=== PATIENT | female | born 1965 | race Caucasian/White ===

== ENCOUNTER 2016-09-15 23:28 | Emergency (ER) | payer BC ==
[~2016-09-15] VITALS: Ht 170.2 cm; Wt 80.3 kg
--- NOTE | ~2016-09-15 | CR72 ---
[facility] A Service of [facility] RADIOLOGY TEXT RESULTS PATIENT: WAI LEONARD LOCATION: [facility] : 69 UNIT #: [id number] AGE: [address]: EMIR ELKINS APRN SEX: F ORDER DR: [id number] [facility] [address] [place], [place] [address] [id number] E MR#: [id number] Acc #: [id number] NAME: WAI LEONARD. : 1965 SEX: F STUDY DATE/TIME: 09/16/2016 1:24 UNIT: [facility] ROOM: STUDY DESCRIPTION: CR Chest Single View Portable Attending Physician: Emir Elkins Aprn Ordering Physician: Emir Elkins Aprn Primary Care Physician: Dominick Lombardi M.D. MEDICAL IMAGING REPORT This report is preliminary unless electronic signature is present EXAM AP portable chest. DATE 09/16/2016 HISTORY 51-year-old female with chest pain and shortness of breath for 1 week, worse since yesterday. COMPARISON PA and lateral chest radiograph, 09/12/2011. FINDINGS A single AP portable view of the chest shows both lungs to be clear. The heart is normal in size. The mediastinal contour is normal. No significant bone abnormalities are seen. IMPRESSION Normal portable chest. Dictated by... Ирина Huynh M.D. THIS IS AN ELECTRONICALLY VERIFIED REPORT Ирина Huynh M.D. at 09/16/2016 9:51 PM [facility]/meghna TD: 09/16/2016 10:01 JOB #: [id number] [facility] A Service [facility] RADIOLOGY TEXT RESULTS PATIENT: WAI LEONARD LOCATION: [facility] : [birth year] UNIT #: [id number] AGE: [address]: EMIR ELKINS APRN SEX: F ORDER DR: MEDICAL IMAGING REPORT Page 1 of 1 COPY
--- NOTE | ~2016-09-15 | EKG ---
PATIENT: WAI LEONARD UNIT #: [id number] Ventricular Rate: 67 BPM Atrial Rate: 67 BPM P-R Interval: 170 ms QRS Duration: 94 ms Q-T Interval: 412 ms QTC Calculation(Bezet): 435 ms P Arg[place]: 73 degrees Calculated R Argyle: -33 degrees Calculated T Arg[place]: 9 degrees Diagnosis Line: Normal sinus rhythm Diagnosis Line: Left axis deviation Diagnosis Line: Abnormal ECG Diagnosis Line: Diagnosis Line: Confirmed by MANUEL COOK MD ([id number]) on Diagnosis Line: 09/16/2016 2:02:47 PM INTERPRETING MD: JOYCE VELÁZQUEZ
[~2016-09-15 23:28] MED LIST: ANEXSIA 7.5/3251 TA1 PO; EPIPEN0.3 MG/0.1; FLEXERIL10 MG PO; MACROBID100 M1 PO; PREDNISONE PO; SYNTHROID PO; VICODIN PO; ZOFRAN PO
[2016-09-16 02:18] LABS: BASOPHIL# 0.1 X10e3 (0-0.3); BASOPHIL% 1.4 % (0-2.5); EOSINOPHIL# 0.1 X10e3 (0-0.7); EOSINOPHIL% 1.3 % (0.0-7.0); HEMATOCRIT 40.8 % (35.0-45.0); HEMOGLOBIN 14.1 gm/dL (12.0-16.0); LYMPHOCYTE# 2.8 X10e3 (1.0-3.5); LYMPHOCYTE% 46.9 % (17.0-45.0); MEAN CELL VOLUME 91.5 FL (83-96); MEAN CORPUSCULAR HEMOGLOBIN 31.6 PG (28-34); MEAN CORPUSCULAR HGB CONC 34.5 g/dL (30-36); MEAN PLATELET VOLUME 7.7 FL (6.5-11.5); MONOCYTE# 0.5 X10e3 (0-1.0); MONOCYTE% 7.9 % (3.0-12.0); NEUTROPHIL# 2.6 X10e3 (1.5-7.1); NEUTROPHIL% 42.5 % (40-75); PLATELET COUNT 213 X10e3 (140-420); RED BLOOD COUNT 4.45 X10e (3.90-5.30); RED CELL DISTRIBUTION WIDTH 13.1 % (11.0-15.5); WHITE BLOOD COUNT 6.1 X10e3 (4.0-10.5)
[2016-09-16 02:31] LABS: DIFF IND NO
[2016-09-16 02:37] LABS: INR 0.9; PARTIAL THROMBOPLASTIN TIME 27.7 SECONDS (23.5-31.3)
[2016-09-16 02:46] LABS: ALBUMIN SERUM 3.9 g/dL (3.5-5.0); BILIRUBIN, DIRECT 0.1 mg/dL (0.0-0.2); BILIRUBIN,INDIRECT 0.1 mg/dL (0.0-0.9); BILIRUBIN,TOTAL 0.2 mg/dL (0.2-2.0); CALCIUM SERUM 8.8 mg/dL (8.4-10.2); GLOM FILT RATE Estimated 66.1 mL/min (>60); POTASSIUM 4.2 mmol/L (3.5-5.1)
[2016-09-16 02:56] LABS: POC - CKMB 1.2 ng/mL (0.0-7.9); POC - TROPONIN <0.05 ng/mL (<=0.05)
[2016-09-16 04:04] LABS: POC - CKMB 1.3 ng/mL (0.0-7.9); POC - TROPONIN <0.05 ng/mL (<=0.05)
== END 2016-09-16 05:45 | disposition home or self-care (01) ==
LOC: CED 23:28
PROVIDERS: Nurse Practitioner Family
DX: R07.89 Other chest pain (principal); R00.2 Palpitations; F17.210 Nicotine dependence, cigarettes, uncomplicated; Z79.899 Other long term (current) drug therapy
CPT/HCPCS: 36415; 71010; 80048; 80076; 82553; 84443; 84484; 85025; 85610; 85730; 93005; 99285